=== PATIENT | male | born 1995 | race Caucasian/White ===

== ENCOUNTER 2017-09-08 19:55 | Emergency (ER) | payer SELFPAY ==
[~2017-09-08] VITALS: Ht 180.3 cm; Wt 59.2 kg
[~2017-09-08 19:55] MED LIST: AMOXICILLIN875 MG OR; NO
[2017-09-08 21:00] VITALS: BP 129/66
== END 2017-09-08 21:00 | disposition home or self-care (01) | DRG 918 ==
LOC: ED 19:55
DX: T63.461A Toxic effect of venom of wasps, accidental (unintentional), initial encounter (principal); R22.31 Localized swelling, mass and lump, right upper limb; Y92.009 Unspecified place in unspecified non-institutional (private) residence as the place of occurrence of the external cause